=== PATIENT | female | born 1990 | race Caucasian/White ===

== ENCOUNTER 2017-11-16 17:08 | Emergency (ER) | payer BC ==
[2017-11-16] MEDS ORDERED: CEPHALEXIN 500 MG CAPSULE PO ONE (18:19)
[2017-11-16] MEDS ORDERED: DIPH/PERTUSS(ACELL)/TETANUS VAC/PF 0.5 ML SYR (>=10YO) IM ONE (18:19)
--- NOTE | 2017-11-16 18:27 | ER Document Report ---
ED General - General Chief Complaint: Finger Injury Stated Complaint: FINGER INJURY Time Seen by Provider: 11/16/17 17:47 TRAVEL OUTSIDE OF THE [place] IN LAST 30 DAYS: No - HPI Notes: 26-year-old female, right-handed presents with left index finger injury. Female diabetic with uncontrolled sugars. Was cutting food with a clean kitchen knife when she slipped and cut the tip of her finger off. Sharp aching burning pain, bleeding controlled at home with quick clot. Nonradiating, sudden onset. No other modifying factors, no other associated symptoms, no other provocative or palliative factors. - Related Data Allergies/Adverse Reactions: latex Allergy (Verified 11/16/17 17:11) Past Medical History - Social History Smoking Status: Never Smoker Family History: Reviewed & Not Pertinent Patient has suicidal ideation: No Patient has homicidal ideation: No Endocrine Medical History: Reports: Hx Diabetes Mellitus Type 2 Renal/ Medical History: Denies: Hx Peritoneal Dialysis Past Surgical History: Reports: Hx Section - x3, Hx Vascular Surgery - Varicose vein Review of Systems - Review of Systems Notes: Review of systems as in history of present illness, otherwise no significant headache, chest pain, abdominal pain. Physical Exam - Vital signs Vitals: Temp Pulse Resp BP Pulse Ox 99.1 F 86 16 129/83 H 98 11/16/17 17:19 11/16/17 17:19 11/16/17 17:19 11/16/17 17:19 11/16/17 17:19 - Notes Notes: General: Well devloped, no acute distress. HEENT: Normocephalic, atraumatic. Pupils equal round reactive to light. Mucosa moist. No JVD. Chest: No trauma, normal excursion. Respiratory: Good air exchange, normal excursion. Cardiac: Regular rhythm Abdomen: Soft, benign. Nondistended. Back: No asymmetry or gross abnormality. Motor: Grossly normal power and tone. Neurologic: Alert, nonfocal. Vascular: Well perfused Skin: No petechiae or purpura Extremities: Left distal fingertip is cut cleanly off. Soft tissue defect is noted no bone visible. Approximately 2 x 3 cm defect noted Course - Re-evaluation Re-evalutation: 11/16/17 18:24 Well-appearing female with isolated left finger injury. Well in appearance. We will proceed with wound care, cleansing, will need to heal by secondary intention. Given underlying diabetes we will cover with antibiotics and a prescription for the same. Update tetanus. 11/16/17 18:24 - Vital Signs Vital signs: Temp Pulse Resp BP Pulse Ox 99.1 F 86 16 129/83 H 98 11/16/17 17:19 11/16/17 17:19 11/16/17 17:19 11/16/17 17:19 11/16/17 17:19 Discharge - Discharge Clinical Impression: Finger laceration Qualifiers: Encounter type: initial encounter Finger: index finger Damage to nail status: without damage Foreign body presence: without foreign body Laterality: left Qualified Code(s): S61.211A - Laceration without foreign body of left index finger without damage to nail, initial encounter Condition: Good Disposition: HOME, SELF-CARE Instructions: Antibiotic Ointment Protection ([facility]), Prophylactic Antibiotic ( [facility]), Laceration Care ([facility]) Prescriptions: Cephalexin Monohydrate [Keflex 500 mg Capsule] 500 mg PO Q6H 7 Days #28 capsule
[2017-11-16 18:53] VITALS: BP 123/84
== END 2017-11-16 18:50 | disposition home or self-care (01) ==
LOC: ER 17:08
DX: S61.211A Laceration without foreign body of left index finger without damage to nail, initial encounter (principal); W26.0XXA Contact with knife, initial encounter; Y93.G1 Activity, food preparation and clean up; E11.9 Type 2 diabetes mellitus without complications; Z91.040 Latex allergy status; Z23 Encounter for immunization
CPT/HCPCS: 90715; 99283